=== PATIENT | male | born 1990 | race Caucasian/White ===

== ENCOUNTER → 2022-03-12 04:10 | Emergency (ER) | payer OTHER ==
[2022-03-12 04:52] LABS: HEMOGLOBIN 15.2 gm/dl (14.0-17.5); RED BLOOD COUNT 4.85 M/UL (4.20-5.50); WHITE BLOOD COUNT 9.3 K/UL (4.5-11.0)
[2022-03-12 05:23] LABS: BUN/CREATININE RATIO 16 (0-10)
== END | disposition home or self-care (01) ==
LOC: ER1 04:10
PROVIDERS: Student in an Organized Health Care Education/Training Program
DX: I10 Essential (primary) hypertension (principal); R07.89 Other chest pain
CPT/HCPCS: 71045; 80053; 82550; 82553; 84484; 85025; 93005; 99284